=== PATIENT | male | born 1940 | race Asian ===

== ENCOUNTER → 2018-12-10 | Outpatient (CLI) | payer MEDICARE, OTHER ==
[~2018-12-10] MED LIST: ASPI-556 PO; ATOR40TA28 PO; CLOP75TA3 PO; DOXA2TAB PO; METF-960 PO; RANI150T7 PO; RANO500T3 PO
== END | disposition home or self-care (01) ==
LOC: RADPV 08:48
PROVIDERS: ATTEND Family Medicine
DX: R05 Cough (principal); J44.9 Chronic obstructive pulmonary disease, unspecified; I70.0 Atherosclerosis of aorta; M46.00 Spinal enthesopathy, site unspecified